=== PATIENT | male | born 1985 | race Caucasian/White ===

== ENCOUNTER 2019-04-15 18:35 | Emergency (ER) | payer OTHER ==
[2019-04-15 18:47] VITALS: BP 150/94; PULSE 59; TEMP 98.7; BMI 28.0
--- NOTE | 2019-04-15 19:52 | PDOC ---
Documentation entered by Tate Grant SCRIBE, acting as scribe for Jose Mackey MD. Jose Mackey MD: This documentation has been prepared by the Rudy lantigua Andrys, SCRIBE, under my direction and personally reviewed by me in its entirety. I confirm that the documentation accurately reflects all work, treatment, procedures, and medical decision making performed by me. History of Present Illness - General Chief Complaint: Injury Stated Complaint: RT THUMB CRUSH INJURY Time Seen by Provider: 04/15/19 19:11 History Source: Patient Exam Limitations: No Limitations - History of Present Illness Initial Comments: 04/15/19 19:25 The patient is a 33 year old male with no significant past medical history who presents to the ED with injury to his right 1st digit. Patient states he jammed his right 1st digit while wrenching his car earlier today. Patient reports bruising and pain on the right 1st digit. Denies any other symptoms. Past History - Past Medical History Allergies/Adverse Reactions: Allergies Allergy/AdvReac Type Severity Reaction Status Date / Time No Known Allergies Allergy Unverified 12/03/16 13:40 Home Medications: Ambulatory Orders NK [No Known Home Medication] 04/15/19 COPD: No Other medical history: denies - Suicide/Smoking/Psychosocial Hx Smoking History: Never smoked Have you smoked in the past 12 months: No Information on smoking cessation initiated: No Hx Alcohol Use: No Review of Systems - Review of Systems Able to Perform ROS?: Yes Comments:: 04/15/19 19:25 A complete review of 10 out of 10 review of systems is taken and is negative apart from what is previously mentioned below and in the HPI *Physical Exam - Vital Signs Last Vital Signs Temp Pulse Resp BP Pulse Ox 98.7 F 59 L 18 150/94 100 04/15/19 18:35 04/15/19 18:35 04/15/19 18:35 04/15/19 18:35 04/15/19 18:35 - Physical Exam Comments: 04/15/19 19:25 Vitals: Triage Vital signs reviewed General Appearance: no acute distress, well nourished well developed, Head: Atraumatic, normocephalic Extremities: + right thumb crush injury subungual hematoma to iman ? of the medial proximal nail bed. Psych: normal mood, normal affect ED Treatment Course - RADIOLOGY Radiology Studies Ordered: Category Date Time Status FINGER(S) RIGHT [RAD] Stat Radiology 04/15/19 19:12 Taken Medical Decision Making - Medical Decision Making 04/15/19 19:50 Crush injury to right thumb. No obvious fracture dislocation noted on x-ray. Given subungual hematoma cautery used to drain blood under nail patient tolerated procedure well covered with bacitracin a Band-Aid Findings, the need for follow-up, strict return instructions discussed with patient. *DC/Admit/Observation/Transfer Diagnosis at time of Disposition: Hematoma, subungual, finger, right Qualifiers: Encounter type: initial encounter Qualified Code(s): S60.10XA - Contusion of unspecified finger with damage to nail, initial encounter - Discharge Dispostion Disposition: HOME Condition at time of disposition: Stable Decision to Admit order: No - Referrals Referrals: Anibal Sanon MD [Staff Physician] - - Patient Instructions Printed Discharge Instructions: DI for Subungual Hematoma Additional Instructions: Apply bacitracin keep covered with Band-Aid. Thumb nail may fall off. Return to ED immediately for any signs of infection for any concerns. If still having pain to thumb for greater than 1 week follow-up with Dr. Sanon hand. - Post Discharge Activity
== END 2019-04-15 20:15 | disposition home or self-care (01) ==
LOC: FER 18:35
PROC: 0HQFXZZ Repair Right Hand Skin, External Approach (ICD-10-PCS; principal; 2019-04-15)
DX: S60.111A Contusion of right thumb with damage to nail, initial encounter (principal); W23.1XXA Caught, crushed, jammed, or pinched between stationary objects, initial encounter; Y93.89 Activity, other specified; Y92.89 Other specified places as the place of occurrence of the external cause
CPT/HCPCS: 73140-TC-RT-FY; 99281-25

== ENCOUNTER 2020-07-28 20:03 | Emergency (ER) | payer OTHER | END 2020-07-28 20:39 | disposition home or self-care (01) | LOC: JVIRT 20:03 | DX: U07.1 COVID-19 (principal) | CPT/HCPCS: 87804; C9803; G2012-GT; Q3014-GT; U0003 ==

== ENCOUNTER 2021-03-15 18:04 | Emergency (ER) | payer OTHER ==
[2021-03-15 18:15] VITALS: BP 124/62; PULSE 74; TEMP 98.2; BMI 26.7
== END 2021-03-15 18:43 | disposition home or self-care (01) ==
LOC: FER 18:04
DX: L25.5 Unspecified contact dermatitis due to plants, except food (principal)
CPT/HCPCS: 99283-25